=== PATIENT | female | born 1985 | race Caucasian/White ===

== ENCOUNTER 2021-07-07 11:24 | Emergency (ER) | payer SELFPAY ==
[2021-07-07] MEDS ORDERED: HYDROmorphone 2 MG/ML SDV SUBCUT ONE (12:00)
[2021-07-07] MEDS ORDERED: Sodium Chloride 0.9% 1,000 ML IV SCH (12:00)
[2021-07-07] MEDS ORDERED: HYDROmorphone 2 MG/ML SDV IVPUSH ONE (12:00)
--- NOTE | 2021-07-07 14:07 | CT ---
DATE OF SERVICE: 07/07/2021 CLINICAL DATA: RT FLANK PAIN Unenhanced abdomen and pelvic CT: Multi slice acquisition through the abdomen and pelvis without IV or oral contrast was performed. The no priors. There are minimal atelectatic changes in the dependent portion of both lower lungs. The lung bases are otherwise clear. The heart size is normal. The unenhanced liver appears normal. No focal hepatic lesions. The gallbladder appears normal. No calcified gallstones. No pericholecystic fluid. The spleen appears normal. The pancreas appears normal. The right and left adrenals appear normal. No nephrocalcinosis or nephrolithiasis. The right kidney appears mildly swollen compared to the left and there is mild right perinephric fat stranding. The proximal right ureter appears minimally prominent and there is mild thickening of the wall of the proximal right ureter. Pyelonephritis should be considered. No ureterolithiasis noted. The left kidney and collecting system are unremarkable. There is a small amount of fluid within the bladder. The bladder wall appears diffusely thickened. This is probably related to nondistention. Cystitis should be considered. There is an IUD noted within the uterus. The uterus is otherwise unremarkable. There is a 1.9 cm oval-shaped fluid density lesion in the right ovary consistent with a right ovarian cyst. The appendix is not dilated. No evidence of appendicitis. There is a moderate amount of stool present in the ascending and transverse colon. There is mild Mural thickening within the transverse, descending, and sigmoid colon. This is probably related to nondistention. Colitis should be considered. No free air. No free fluid. No dilated loops of bowel. No adenopathy. No aortic aneurysm. MTDD
--- NOTE | 2021-07-07 18:49 | EDM.PDOC ---
ED HPI GENERAL MEDICAL PROBLEM - General Chief Complaint: Abdominal Pain Stated Complaint: COVID SYMPTOMS Time Seen by Provider: 07/07/21 11:30 - History of Present Illness INITIAL COMMENTS - FREE TEXT/NARRATIVE: Pt comes to the ER with C/O Abd pain on the Rt side for 3 days. No falls or injuries. She has not had any dysuria or hematuria. She denies any Hx of kidney stones. 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 : Reports: Flank Pain ED EXAM, RENAL/ - Physical Exam Exam: See Below General Appearance: Other (Pt is uncomfortable from the pain, and is lying on her Lt side.) GI/Abdominal: Other (She has pain from the mid back Rt side wrapping around to the LRQ od the Abd. Bowel sounds are present.) Course - Vital Signs Last Recorded V/S: Last Vital Signs Temp 98.5 F 07/07/21 11:32 Pulse 130 H 07/07/21 11:32 Resp 16 07/07/21 11:32 BP 129/85 07/07/21 11:32 Pulse Ox 100 07/07/21 11:32 - Orders/Labs/Meds Labs: Laboratory Tests 07/07/21 07/07/21 07/07/21 Range/Units 11:38 11:59 12:15 WBC 15.3 H (4.0-11.0) K/uL RBC 4.20 (3.80-5.80) M/uL Hgb 12.8 (11.5-16.5) g/dL Hct 38.0 (37.0-47.0) % MCV 91 (76-96) fL MCH 30.5 (27.0-32.0) pg MCHC 33.7 (31.0-35.0) g/dL RDW 11.9 (11.0-16.0) % Plt Count 269 (150-500) K/uL MPV 9.1 (6.0-10.0) fL Neut % (Auto) 82.7 H (45.0-70.0) % Lymph % (Auto) 4.6 L (20.0-40.0) % [place] % (Auto) 12.5 H (3.0-10.0) % Eos % (Auto) 0.1 L (1.0-5.0) % Baso % (Auto) 0.1 (0.0-0.5) % Neut # (Auto) 12.69 H (2.00-7.50) K/uL Lymph # (Auto) 0.70 L (1.50-4.00) K/uL [place] # (Auto) 1.92 H (0.20-0.80) K/uL Eos # (Auto) 0.01 L (0.04-0.40) K/uL Baso # (Auto) 0.02 (0.02-0.10) K/uL Sodium (136-145) mmol/L Potassium (3.5-5.1) mmol/L Chloride (98-107) mmol/L Carbon Dioxide (21.0-32.0) mmol/L Anion Gap (5.0-15.0) mmol/L BUN (8-26) mg/dL Creatinine (0.55-1.02) mg/dL Est Cr Clr Drug Dosing mL/min Estimated GFR (MDRD) (>60) MLS/MIN BUN/Creatinine Ratio (6-25) Glucose (74-100) mg/dL Calcium (8.5-10.1) mg/dL Total Bilirubin (0.0-1.0) mg/dL AST (15-37) U/L ALT (12-78) U/L Alkaline Phosphatase (46-116) U/L Total Protein (6.4-8.2) g/dL Albumin (3.4-5.0) g/dL Globulin (2.2-4.2) g/dL Albumin/Globulin Ratio (0.8-2.0) Urine Color Urine Appearance (CLEAR) Urine pH (5.0-8.0) Ur Specific [place] (1.003-1.030) Urine Protein (NEGATIVE) mg/dL Urine Glucose (UA) (NEGATIVE) mg/dL Urine Ketones (NEGATIVE) mg/dL Urine Occult Blood (NEGATIVE) Urine Nitrite (NEGATIVE) Urine Bilirubin (NEGATIVE) Urine Urobilinogen (0.2-1.0) E.U./dL Ur Leukocyte Esterase (NEGATIVE) Urine RBC /HPF Urine WBC /HPF Ur Squamous Epith Cells /HPF Urine Bacteria /HPF Urine Opiates Screen Positive H (NEGATIVE) Ur Oxycodone Screen Negative (NEGATIVE) Urine Methadone Screen Negative (NEGATIVE) Ur Barbiturates Screen Negative (NEGATIVE) Ur Tricyclics Screen Negative (NEGATIVE) Ur Phencyclidine Scrn Negative (NEGATIVE) Ur Amphetamine Screen Positive H (NEGATIVE) U Methamphetamines Scrn Positive H (NEGATIVE) Urine MDMA Screen Negative (NEGATIVE) U Benzodiazepines Scrn Negative (NEGATIVE) U Cocaine Metab Screen Negative (NEGATIVE) U Marijuana (THC) Screen Negative (NEGATIVE) SARS CoV-2 RNA Rapid DELANEY Negative 07/07/21 07/07/21 Range/Units 13:36 13:38 WBC (4.0-11.0) K/uL RBC (3.80-5.80) M/uL Hgb (11.5-16.5) g/dL Hct (37.0-47.0) % MCV (76-96) fL MCH (27.0-32.0) pg MCHC (31.0-35.0) g/dL RDW (11.0-16.0) % Plt Count (150-500) K/uL MPV (6.0-10.0) fL Neut % (Auto) (45.0-70.0) % Lymph % (Auto) (20.0-40.0) % [place] % (Auto) (3.0-10.0) % Eos % (Auto) (1.0-5.0) % Baso % (Auto) (0.0-0.5) % Neut # (Auto) (2.00-7.50) K/uL Lymph # (Auto) (1.50-4.00) K/uL [place] # (Auto) (0.20-0.80) K/uL Eos # (Auto) (0.04-0.40) K/uL Baso # (Auto) (0.02-0.10) K/uL Sodium 130 L (136-145) mmol/L Potassium 3.7 (3.5-5.1) mmol/L Chloride 97 L (98-107) mmol/L Carbon Dioxide 20.7 L (21.0-32.0) mmol/L Anion Gap 16.0 H (5.0-15.0) mmol/L BUN 10 (8-26) mg/dL Creatinine 0.81 (0.55-1.02) mg/dL Est Cr Clr Drug Dosing 77.90 mL/min Estimated GFR (MDRD) > 60 (>60) MLS/MIN BUN/Creatinine Ratio 12.3 (6-25) Glucose 104 H (74-100) mg/dL Calcium 8.5 (8.5-10.1) mg/dL Total Bilirubin 0.7 (0.0-1.0) mg/dL AST 23 (15-37) U/L ALT 29 (12-78) U/L Alkaline Phosphatase 130 H (46-116) U/L Total Protein 7.3 (6.4-8.2) g/dL Albumin 2.6 L (3.4-5.0) g/dL Globulin 4.7 H (2.2-4.2) g/dL Albumin/Globulin Ratio 0.6 L (0.8-2.0) Urine Color Yellow Urine Appearance Clear (CLEAR) Urine pH 6.0 (5.0-8.0) Ur Specific [place] >= 1.030 (1.003-1.030) Urine Protein 100 H (NEGATIVE) mg/dL Urine Glucose (UA) Negative (NEGATIVE) mg/dL Urine Ketones 40 H (NEGATIVE) mg/dL Urine Occult Blood Moderate H (NEGATIVE) Urine Nitrite Positive H (NEGATIVE) Urine Bilirubin Small H (NEGATIVE) Urine Urobilinogen 4.0 H (0.2-1.0) E.U./dL Ur Leukocyte Esterase Small H (NEGATIVE) Urine RBC 5-10 H /HPF Urine WBC 50-75 H /HPF Ur Squamous Epith Cells Moderate /HPF Urine Bacteria Many H /HPF Urine Opiates Screen (NEGATIVE) Ur Oxycodone Screen (NEGATIVE) Urine Methadone Screen (NEGATIVE) Ur Barbiturates Screen (NEGATIVE) Ur Tricyclics Screen (NEGATIVE) Ur Phencyclidine Scrn (NEGATIVE) Ur Amphetamine Screen (NEGATIVE) U Methamphetamines Scrn (NEGATIVE) Urine MDMA Screen (NEGATIVE) U Benzodiazepines Scrn (NEGATIVE) U Cocaine Metab Screen (NEGATIVE) U Marijuana (THC) Screen (NEGATIVE) SARS CoV-2 RNA Rapid DELANEY Meds: Medications Discontinued Medications Generic Name Dose Route Start Last Admin Trade Name Freq PRN Reason Stop Dose Admin Hydromorphone HCl 1 mg 07/07/21 12:00 07/07/21 12:00 Hydromorphone 2 Mg/Ml Sdv SUBCUT 07/07/21 12:01 1 mg ONETIME ONE Administration Sodium Chloride 1,000 mls @ 999 mls/hr 07/07/21 12:00 07/07/21 12:30 Normal Saline IV 999 mls/hr ASDIRECTED NICOLA Administration - Re-Assessments/Exams Free Text/Narrative Re-Assessment/Exam: 07/07/21 18:46 Dilaudid 1 mg was given Subq, which controlled her pain well. Labs show a UTI. CT Abd shows possible Pyelonephritis and Cystitis. I did consult Pharmacy, and We will send pt home on Cipro and Pyridium. She is to take Tylenol also as needed. Rest - increase fluids. Follow up in 1-2 days if not improving. Her urine drug screen is positive for multiple things - see lab results. 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 Departure - Departure Time of Disposition: 14:00 Disposition: Home, Self-Care 01 Clinical Impression: Pyelonephritis Urinary tract infection Qualifiers: Urinary tract infection type: acute cystitis Hematuria presence: with hematuria Qualified Code(s): N30.01 - Acute cystitis with hematuria - Discharge Information *PRESCRIPTION DRUG MONITORING PROGRAM REVIEWED*: No *COPY OF PRESCRIPTION DRUG MONITORING REPORT IN PATIENT SERENE: No Instructions: Pyelonephritis, Adult, [id number], Phenazopyridine tablets, Urinary Tract Infection, Adult, [id number], Ciprofloxacin tablets Referrals: PCP,None [Primary Care Provider] - Forms: ED Department Discharge Additional Instructions: Rest, stay hydrated with plenty of fluids. If symptoms worsen, return to the Emergency Room for evaluation. Take prescribed medications as directed. Cipro - 1 tab twice a day for 7 days Pyridium - 1 tab three times a day for 3 days. Sepsis Event Note (ED) - Focused Exam Vital Signs: Vital Signs Temp Pulse Resp BP Pulse Ox 07/07/21 11:32 98.5 F 130 H 16 129/85 100
== END 2021-07-07 14:44 | disposition home or self-care (01) ==
LOC: LB.ED 11:24
DX: N30.01 Acute cystitis with hematuria (principal); N12 Tubulo-interstitial nephritis, not specified as acute or chronic; Z88.1 Allergy status to other antibiotic agents; Z20.822 Contact with and (suspected) exposure to COVID-19
CPT/HCPCS: 36415; 74176; 80053; 80307; 81001; 85025; 87635; 96372; 99284; J1170; J7030; U0002